=== PATIENT | male | born 1995 | race Caucasian/White ===

== ENCOUNTER 2021-07-03 00:18 | Emergency (ER) | payer MEDICAID ==
[~2021-07-03] VITALS: Ht 175.3 cm; Wt 77.3 kg
[~2021-07-03 00:18] MED LIST: DIPH25CA83 PO
[2021-07-03] MEDS ORDERED: LIDOcaine Viscous 15ml cup MM PRN (03:35)
[2021-07-03] MEDS ORDERED: naproxen 500mg tablet PO ONE (03:35)
[2021-07-03] MEDS ORDERED: AMOX-580 PO (03:49)
[2021-07-03] MEDS ORDERED: amox tr/potassium clavulanate 875/125mg TAB PO ONE (03:50)
[2021-07-03] MEDS ORDERED: LIDOcaine 1% W/epiNEPHrine 1:100,000 20ml vial SQ ONE (04:10)
[2021-07-03] MEDS ORDERED: LIDOcaine 1% w/EPI 1:100,000 30ml vial (MDV) SQ ONE (04:30)
[2021-07-03 04:34] VITALS: BP 147/72
[2021-07-03] MEDS ORDERED: LIDOcaine 1% W/epiNEPHrine 1:100,000 20ml vial ONE (08:00)
== END 2021-07-03 04:45 | disposition home or self-care (01) ==
LOC: ER 00:19
DX: S03.2XXA Dislocation of tooth, initial encounter (principal); K08.89 Other specified disorders of teeth and supporting structures; Z88.5 Allergy status to narcotic agent; Z79.2 Long term (current) use of antibiotics; X58.XXXA Exposure to other specified factors, initial encounter; Y93.89 Activity, other specified; Y92.89 Other specified places as the place of occurrence of the external cause; Y99.8 Other external cause status
CPT/HCPCS: 64400; 99284; J3490

== ENCOUNTER 2024-02-03 13:34 | Emergency (ER) | payer MEDICARE, MEDICAID ==
[~2024-02-03] VITALS: Ht 177.8 cm; Wt 77.2 kg
[2024-02-03] MEDS: HYDROcodone/acetaminophen 10/325mg tab PO ONE (14:32)
[2024-02-03] MEDS ORDERED: HYDR-3965 PO (14:45)
[2024-02-03 15:05] VITALS: BP 142/77; PULSE 66; RESP 18; TEMP 98.3; O2SAT 99
== END 2024-02-03 15:06 | disposition home or self-care (01) ==
LOC: ER 13:35
DX: S82.191A Other fracture of upper end of right tibia, initial encounter for closed fracture (principal); M25.561 Pain in right knee; M25.461 Effusion, right knee; Z88.5 Allergy status to narcotic agent; X58.XXXA Exposure to other specified factors, initial encounter; Y93.89 Activity, other specified; Y92.89 Other specified places as the place of occurrence of the external cause; Y99.8 Other external cause status
CPT/HCPCS: 29505; 73564; 99284

== ENCOUNTER 2024-02-09 12:34 | Outpatient (CLI) | payer MEDICARE, MEDICAID ==
[~2024-02-09 12:34] MED LIST changes: +HYDR-3965 PO
== END 2024-02-09 23:59 | disposition home or self-care (01) ==
LOC: RAD 12:34
PROVIDERS: ATTEND Physician Assistant Surgical
DX: S82.141A Displaced bicondylar fracture of right tibia, initial encounter for closed fracture (principal); M25.561 Pain in right knee; X58.XXXA Exposure to other specified factors, initial encounter; Y93.89 Activity, other specified; Y92.89 Other specified places as the place of occurrence of the external cause; Y99.8 Other external cause status
CPT/HCPCS: 73700